=== PATIENT | female | born 1945 | race Asian ===

== ENCOUNTER → 2017-12-27 13:42 | Outpatient (CLI) | payer MEDICARE, OTHER, SELFPAY ==
--- NOTE | 2017-12-27 | DI.MRI.S_ITS ---
PROCEDURE: MR LUMBAR SPINE WO CON INDICATIONS: LUMBAR SPINE PAIN TECHNIQUE: Noncontrast sagittal T1 spin echo and T2 fast echo, sagittal STIR, axial T1 and T2 fast spin echo through the lumbar spine. In cases with scoliosis, additional coronal T2 fast spin echo may be performed. COMPARISON: [facility], CR, XR LUMBAR SPINE WITH OBLIQUES, 12/13/2017, 13:58. [facility], RG, SPINE LUMB 2 OR 3VW, 11/29/2017, 15:00. [facility] Outside Film, CT, CT LUMBAR SPINE WITHOUT CONTRAST, 12/30/2013, 15:11. FINDINGS: Image quality: Excellent. Alignment and Curvature: There is there is trace retrolisthesis of L1 on L2, L3 on L4. Bone Marrow: Marrow is of normal overall signal. Increased T1 and T2 signal is noted at L1 most suggestive of prominent hemangioma. No acute vertebral body compression fractures. Spinal Cord: Conus medullaris terminates at the L1 level. Visualized cord demonstrates normal signal and size. Paraspinous Soft Tissues: No paravertebral masses. Discs: Moderate desiccation is present throughout the lumbar spine. L1-L2: Mild disc bulge with mild spinal stenosis. Moderate left and mild to moderate right foraminal narrowing with facet and ligamentum flavum hypertrophy. L2-L3: Mild disc bulge with moderate spinal stenosis. Minimal to mild bilateral foraminal narrowing with facet and ligamentum flavum hypertrophy. L3-L4: Mild disc bulge with a left lateral/foraminal component. Moderate to severe spinal stenosis. Moderate to severe bilateral foraminal narrowing, left greater than right with facet and ligamentum flavum hypertrophy. L4-L5: Mild disc bulge with severe spinal stenosis. There is an appearance of either an extruded fragment or perhaps focal area of ligamentum flavum hypertrophy which is contributing to the severe spinal stenosis and canal flattening as well as the disc bulge. It is difficult to delineate. As noted on prior exam significant spinal stenosis was present this level as well. L5-S1: Mild disc bulge with mild to moderate spinal stenosis. Mild left and moderate to severe right foraminal narrowing with facet and ligamentum flavum hypertrophy. IMPRESSION: 1. Multilevel degenerative changes filled to overall demonstrate small degrees of interval progression compared to prior exam. 2. Most prominent levels identified at L4-5 demonstrate severe spinal stenosis and canal flattening. This is secondary to disc bulge. The presence of a disc extrusion versus prominent focus of ligamentum flavum arthropathy is difficult to clearly delineate. However, it is noted that significant canal narrowing was present at this level on prior exam. 3. Multilevel foraminal narrowing secondary to facet arthropathy. Dictated by: Argentina Ng M.D. on 12/27/2017 at 16:40 Approved by: Argentina Ng M.D. on 12/27/2017 at 16:48
== END ==
PROVIDERS: PCP Family Medicine; Visit Provider Physical Medicine & Rehabilitation Pain Medicine
DX: M54.5 Low back pain (principal); M51.36 Other intervertebral disc degeneration, lumbar region; M48.061 Spinal stenosis, lumbar region without neurogenic claudication; M48.07 Spinal stenosis, lumbosacral region; M47.816 Spondylosis without myelopathy or radiculopathy, lumbar region; M47.817 Spondylosis without myelopathy or radiculopathy, lumbosacral region
CPT/HCPCS: 72148